=== PATIENT | male | born 1955 | race African-American/Black ===

== ENCOUNTER 2020-09-03 15:36 | Emergency (ER) | payer MEDICARE, MEDICAID ==
[~2020-09-03] VITALS: Ht 170.2 cm; Wt 81.6 kg
[2020-09-03 15:54] VITALS: BP 165/99
[2020-09-03] MEDS ORDERED: AMLODIPINE BESYL5 MG ORAL (15:56)
[2020-09-03] MEDS ORDERED: JANUMET 50-1,01 EACH ORAL (15:56)
[2020-09-03] MEDS ORDERED: HYDROCODON-ACE1 EA15 ORAL (15:56)
[2020-09-03] MEDS ORDERED: GLIPIZIDE5 MG ORAL (15:56)
[2020-09-03 16:40] LABS: BASOPHILS % (AUTO) 0.9 % (0.0-2.0); EOSINOPHILS % (AUTO) 2.1 % (0.0-3.0); HEMATOCRIT 46.8 % (42.0-52.0); HEMOGLOBIN 16.4 G/DL (14.2-18.0); LYMPHOCYTES % (AUTO) 25.5 % (20.0-45.0); MEAN CORPUSCULAR VOLUME 91 FL (80-99); NEUTROPHILS % (AUTO) 63.4 % (45.0-75.0); PLATELET COUNT 249 K/UL (150-450); RED BLOOD COUNT 5.16 M/UL (4.70-6.10); RED CELL DISTRIBUTION WIDTH 12.3 % (11.6-14.8); WHITE BLOOD COUNT 9.2 K/UL (4.8-10.8)
[2020-09-03 16:43] LABS: CALCIUM 9.1 MG/DL (8.5-10.1); CREATININE 2.4 MG/DL (0.55-1.30); POTASSIUM 4.5 MMOL/L (3.5-5.1)
[2020-09-03 16:48] LABS: ALBUMIN 3.5 G/DL (3.4-5.0); ALBUMIN/GLOBULIN RATIO 0.7 (1.0-2.7); BILIRUBIN,TOTAL 0.4 MG/DL (0.2-1.0)
--- NOTE | 2020-09-03 17:05 | Diagnostic Imaging Report ---
Indications: Right-sided head pain radiating down to patient's feet Technique: Spiral acquisitions obtained through the brain. Angled axial and coronal 5 x 5 mm slices were reconstructed. Total dose length product 1098 mGycm. CTDI vol(s) 53 mGy. Dose reduction achieved using automated exposure control Comparison: None. Findings: There is a large area of cystic encephalomalacia involving essentially entire left occipital lobe and extending into the posterior inferior parietal lobe. There is resultant ex vacuo dilatation of the atrium of the left lateral ventricle. There is a smaller area of encephalomalacia involving the parasagittal posterior right parietal lobe extending into the occipital lobe. There is an old white matter infarct in the right bethea radiata. There is generalized age-related enlargement of the ventricles and extra axial CSF spaces. There is extensive periventricular deep white matter low-attenuation, consistent with chronic microvascular ischemic change. There are old bilateral basal ganglia lacunar infarcts noted. The calvarium is intact. Old lacunar infarct is seen in the right cerebellar hemisphere. The mastoids are clear. Visualized sinuses are unremarkable. There is evidence of prior cataract surgery on the right orbit Impression: Extensive chronic and age-related changes, including multiple old infarcts, as detailed above. Negative for acute intracranial bleed or mass effect The CT scanner at [facility] is accredited by the [employer] and the scans are performed using protocols designed to limit radiation exposure to as low as reasonably achievable to attain images of sufficient resolution adequate for diagnostic evaluation.
--- NOTE | 2020-09-03 17:14 | Diagnostic Imaging Report ---
Indications: Low back pain Technique: Spiral acquisitions obtained through the lumbar spine. Multiplanar reconstructions were generated. No IV contrast utilized. Total dose length product 1312 mGycm. CTDIvol(s) 20 mGy. Dose reduction achieved using automated exposure control Comparison: none Findings: Bony alignment is normal. Vertebral body heights are preserved. There is severe degenerative disc narrowing L5-S1, mild degenerative disc narrowing at L4-5. The remaining disc spaces are preserved. No evidence of acute fracture or dislocation. There is bilateral sacroiliac joint degeneration. At L3-4, there is circumferential annular bulge. This results in borderline spinal canal stenosis. There is bilateral facet arthrosis at this level. At L4-5, there is posterior disc bulge/osteophyte complex, which results in borderline narrowing of the spinal canal, there is moderate bilateral neural foraminal stenosis due to facet hypertrophy as well as the bulging disc. At L5-S1, posterior osteophytes may impinge upon the right lateral recess. There is severe bilateral neural foraminal stenosis, borderline central canal stenosis. The included extraspinal soft tissues are unremarkable. Impression: No acute bony trauma Degenerative changes, as detailed on a level by level basis above The CT scanner at [facility] is accredited by the [employer] and the scans are performed using protocols designed to limit radiation exposure to as low as reasonably achievable to attain images of sufficient resolution adequate for diagnostic evaluation.
--- NOTE | 2020-09-03 17:24 | Diagnostic Imaging Report ---
Indication: Neck pain Technique: Spiral acquisitions obtained through the cervical spine. No IV contrast utilized. Multiplanar reconstructions were generated. Total dose length product 1312 mGycm. CTDIvol(s) 20 mGy. Dose reduction achieved using automated exposure control. Comparison: none Findings: There is reversal of the normal cervical lordosis. There is very slight anterior offset of C2 on C3, very slight posterior offset of C4 on C5 and of C5 on C6. This is probably related to degenerative change. Otherwise normal bony alignment. The vertebral body heights are preserved. No acute fractures. No dislocations. At C2-3, the disc space is preserved. There is severe bilateral facet arthrosis. There is severe narrowing of the left neural foramen and the right neural foramen is nearly completely obliterated. No significant disc bulge or protrusion or central canal stenosis. At C3-4, there is moderate to severe degenerative disc narrowing. There is severe bilateral neural foraminal stenosis. No significant disc bulge or protrusion or spinal stenosis. There is bilateral facet arthrosis at this level. At C4-5, there is moderate to severe degenerative disc narrowing. There is moderate to severe right, severe left neural foraminal stenosis. No significant disc bulge or protrusion or spinal stenosis. At C5-6, there is severe degenerative disc narrowing. There is severe bilateral neural foraminal stenosis. There is bilateral facet arthrosis. Short pedicles and posterior osteophytes result in mild spinal stenosis at this level. At C6-7, there is mild degenerative disc narrowing. There is mild right neural foraminal stenosis. At C7-T1, no significant disc bulge or protrusion, spinal stenosis, or neural foraminal narrowing. The included extra spinal soft tissues are unremarkable. Impression: No acute bony trauma Degenerative changes as detailed on a level by level basis above The CT scanner at [facility] is accredited by the [employer] and the scans are performed using protocols designed to limit radiation exposure to as low as reasonably achievable to attain images of sufficient resolution adequate for diagnostic evaluation.
--- NOTE | 2020-09-03 17:34 | Diagnostic Imaging Report ---
Indication: Back pain Technique: Spiral acquisitions obtained through the thoracic spine. No IV contrast utilized. Multiplanar reconstructions were generated. Total dose length product 1312 mGycm. CTDIvol(s) 20 mGy. Dose reduction achieved using automated exposure control Comparison: none Findings: There is mild thoracic scoliotic deformity, otherwise normal bony alignment.. Vertebral body heights are preserved. Disc spaces are preserved. No evidence of acute fracture. No dislocation. There are degenerative proliferative changes noted. There are degenerative changes of the lower cervical spine noted. There is moderate left neural foraminal stenosis at T2-3. There is severe neural foraminal stenosis on the right at T3-4. A central posterior osteophyte at T8-9 results in borderline narrowing of the spinal canal. At the remaining disc levels, no significant disc bulge or protrusion, spinal stenosis, or neural foraminal narrowing. Included extra spinal soft tissues are unremarkable. There is evidence of transverse narrowing of the trachea, etiology of which is uncertain. Impression: No acute bony trauma Degenerative changes, as described Slight saber-sheath appearance of the trachea, significance/etiology uncertain The CT scanner at [facility] is accredited by the [employer] and the scans are performed using protocols designed to limit radiation exposure to as low as reasonably achievable to attain images of sufficient resolution adequate for diagnostic evaluation.
[2020-09-03] MEDS ORDERED: Insulin Human Regular 100units/ml 3ml ONE (18:57)
[2020-09-03] MEDS ORDERED: Insulin Human Regular 100units/ml 3ml IV ONE (19:00)
--- NOTE | 2020-09-03 19:32 | Emergency Room Report ---
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 Denies any fall or injury however at times reports that" I do not recall if I fell.". Appears to be slightly confused, however neurovascularly intact. I spoke to patient's primary doctor, Dr. Lopez and was told that patient has been taking the medication as been living in [facility]. Patient has not had any seizure history. Appears to be ambulatory. Stable vital signs. Allergies: Coded Allergies: CODEINE (Verified Allergy, Unknown, 09/03/20) COVID-19 Screening Contact w/high risk pt: No Experienced COVID-19 symptoms?: No COVID-19 Testing performed PUMP INSTALLER: No Patient History Past Medical History: see triage record Past Surgical History: none Pertinent Family History: none Immunizations: UTD Reviewed Nursing Documentation: PMH: Agreed; PSxH: Agreed Nursing Documentation-PMH Hx Hypertension: Yes Hx Diabetes: Yes Hx Cerebrovascular Accident: Yes - in 2013, R sided weakness Review of Systems All Other Systems: negative except mentioned in HPI Physical Exam Vital Signs Date Time Temp Pulse Resp B/P (MAP) Pulse Ox O2 Delivery O2 Flow Rate FiO2 09/03/20 15:45 98.4 99 18 165/99 (121) 94 Room Air Sp02 EP Interpretation: reviewed, normal General Appearance: no apparent distress, alert, GCS 15, non-toxic Head: normocephalic, atraumatic Eyes: bilateral eye normal inspection, bilateral eye PERRL ENT: hearing grossly normal, normal pharynx, no angioedema, normal voice Neck: full range of motion, supple/symm/no masses Respiratory: chest non-tender, lungs clear, normal breath sounds, speaking full sentences Cardiovascular #1: regular rate, rhythm, no edema Cardiovascular #2: 2+ carotid (R), 2+ carotid (L), 2+ radial (R), 2+ radial (L), 2+ dorsalis pedis (R), 2+ dorsalis pedis (L) Gastrointestinal: normal bowel sounds, non tender, soft, no organomegaly, no peritonitis, no bruit, non-distended, no guarding, no rebound Rectal: deferred Genitourinary: no CVA tenderness Musculoskeletal: back normal, normal range of motion, no calf tenderness, pelvis stable, gait/station normal, non-tender Neurologic: alert, motor strength/tone normal, oriented, distal neuro normal, oriented x3, sensory intact, responsive, speech normal Psychiatric: judgement/insight normal, memory normal, mood/affect normal, no suicidal/homicidal ideation Skin: no rash Lymphatic: no adenopathy Medical Decision Making PA Attestation All diagnoses and treatment plans were reviewed and discussed with my supervising physician Dr. 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 Denies any fall or injury however at times reports that" I do not recall if I fell.". Appears to be slightly confused, however neurovascularly intact. I spoke to patient's primary doctor, Dr. Lopez and was told that patient has been taking the medication as been living in [facility]. Patient has not had any seizure history. Appears to be ambulatory. Stable vital signs. Ddx considered but are not limited to: CVA, TIA, pulmonary embolism leading to stroke, Vital signs: are WNL, pt. is afebrile H&PE are most consistent with: Weakness, hyperglycemia ORDERS: Head CT no contrast, CT C-spine no contrast, CT T and L-spine no contrast, stroke order set ER intervention: NS bolus, insulin At this time patient is stable to be discharged due to normal vital signs, blood work within normal limit controlled diabetes after administration of IV fluids and insulin. No signs of acute stroke noted on CT head. I consulted with patient's primary doctor, Dr. Lopez and he agrees that the patient can be sent back home. Advised patient return to the emergency room if worsening symptoms. Also patient should be compliant with taking diabetes medication, more advanced assessment and management of diabetes needed for patient due to elevated glucose upon arrival. EKG Diagnostic Results Rate: normal Rhythm: NSR ST Segments: no acute changes Other Impression No acute ST changes ASA given to the pt in ED: No Chest X-Ray Diagnostic Results Chest X-Ray Diagnostic Results : Indication: Other CT/MRI/US Diagnostic Results CT/MRI/US Diagnostic Results #1: Imaging Test Ordered: CT head no contrast Impression Findings: There is a large area of cystic encephalomalacia involving essentially entire left occipital lobe and extending into the posterior inferior parietal lobe. There is resultant ex vacuo dilatation of the atrium of the left lateral ventricle. There is a smaller area of encephalomalacia involving the parasagittal posterior right parietal lobe extending into the occipital lobe. There is an old white matter infarct in the right bethea radiata. There is generalized age-related enlarge ment of the ventricles and extra axial CSF spaces. There is extensive periventricular deep white matter low-attenuation, consistent with chronic microvascular ischemic change. There are old bilateral basal ganglia lacunar infarcts noted. The calvarium is intact. Old lacunar infarct is seen in the right cerebellar hemisphere. The mastoids are clear. Visualized sinuses are unremarkable. There is evidence of prior cataract surgery on the right orbit Impression: Extensive chronic and age-related changes, including multiple old infarcts, as detailed above. CT/MRI/US Diagnostic Results #2: Imaging Test Ordered: CT C spine no contrast Impression Findings: There is reversal of the normal cervical lordosis. There is very slight anterior offset of C2 on C3, very slight posterior offset of C4 on C5 and of C5 on C6. This is probably related to degenerative change. Otherwise normal bony alignment. The vertebral body heights are preserved. No acute fractures. No dislocations. At C2-3, the disc space is preserved. There is severe bilateral facet arthrosis. There is severe narrowing of the left neural foramen and the right neural foramen is nearly completely obliterated. No significant disc bulge or protrusion or centra l canal stenosis. At C3-4, there is moderate to severe degenerative disc narrowing. There is severe bilateral neural foraminal stenosis. No significant disc bulge or protrusion or spinal stenosis. There is bilateral facet arthrosis at this level. At C4-5, there is moderate to severe degenerative disc narrowing. There is moderate to severe right, severe left neural foraminal stenosis. No significant disc bulge or protrusion or spinal stenosis. At C5-6, there is severe degenerative disc narrowing. There is severe bilateral neural foraminal stenosis. There is bilateral facet arthrosis. Short pedicles and posterior osteophytes result in mild spinal stenosis at this level. At C6-7, there is mild degenerative disc narrowing. There is mild right neural foraminal stenosis. At C7-T1, no significant disc bulge or protrusion, spinal stenosis, or neural foraminal narrowing. The included extra spinal soft tissues are unremarkable. Impression: No acute bony trauma Degenerative changes as detailed on a level by level basis above CT/MRI/US Diagnostic Results #3: Imaging Test Ordered: CT T spine no contrast Impression Findings: There is mild thoracic scoliotic deformity, otherwise normal bony alignment.. Vertebral body heights are preserved. Disc spaces are preserved. No evidence of acute fracture. No dislocation. There are degenerative proliferative changes noted. There are degenerative changes of the lower cervical spine noted. There is moderate left neural foraminal stenosis at T2-3. There is severe neural foraminal stenosis on the right at T3-4. A central posterior osteophyte at T8-9 results in borderline narrowing of the spinal canal. At the remaining disc levels, no significant disc bulge or protrusion, spinal stenosis, or neural foraminal narrowing. Included extra spinal soft tissues are unremarkable. There is evidence of tra nsverse narrowing of the trachea, etiology of which is uncertain. Impression: No acute bony trauma Degenerative changes, as described Slight saber-sheath appearance of the trachea, significance/etiology uncertain CT/MRI/US Diagnostic Results #4: Imaging Test Ordered: CT L spine no contrast Impression Findings: Bony alignment is normal. Vertebral body heights are preserved. There is severe degenerative disc narrowing L5-S1, mild degenerative disc narrowing at L4-5. The remaining disc spaces are preserved. No evidence of acute fracture or dislocation. There is bilateral sacroiliac joint degeneration. At L3-4, there is circumferential annular bulge. This results in borderline spinal canal stenosis. There is bilateral facet arthrosis at this level. At L4-5, there is posterior disc bulge/osteophyte complex, which results in borderline narrowing of the spinal canal, there is moderate bilateral neural foraminal stenosis due to facet hypertrophy as well as the bulging disc. At L5-S1, posterior osteophytes may impinge upon the right lateral recess. There is severe bilateral neural foraminal stenosis, borderline central canal stenosis. The included extraspinal soft tissues are unremarkable. Impression: No acute bony trauma Degenerative changes, as detailed on a level by level basis above Last Vital Signs Date Time Temp Pulse Resp B/P (MAP) Pulse Ox O2 Delivery O2 Flow Rate FiO2 09/03/20 15:54 18 165/99 94 Room Air 09/03/20 15:45 98.4 99 Disposition: HOME, SELF-CARE Condition: Stable Referrals: Wade Lopez MD (PCP) Patient Instructions: Hyperglycemia, [id number] Linnea Mcneil Sep 03, 2020 19:32
[2020-09-03 20:10] VITALS: BP 156/95
== END 2020-09-03 20:10 | disposition home or self-care (01) ==
LOC: EMR 16:15
DX: E11.65 Type 2 diabetes mellitus with hyperglycemia (principal); Z79.84 Long term (current) use of oral hypoglycemic drugs; I10 Essential (primary) hypertension; Z86.73 Personal history of transient ischemic attack (TIA), and cerebral infarction without residual deficits
CPT/HCPCS: 70450; 72125; 72128; 72131; 80053; 82009; 82803; 82962; 84484; 85025; 85610; 85730; 93005; 96361; 96374; 99284; J1815

== ENCOUNTER 2020-11-19 10:40 | Emergency (ER) | payer MEDICARE, MEDICAID ==
[~2020-11-19] VITALS: Ht 177.8 cm; Wt 83.9 kg
[~2020-11-19 10:40] MED LIST: AMLODIPINE BESYL5 MG ORAL; GLIPIZIDE5 MG ORAL; HYDROCODON-ACE1 EA15 ORAL; JANUMET 50-1,01 EACH ORAL
[2020-11-19 10:47] VITALS: BP 153/84
--- NOTE | 2020-11-19 11:00 | NUR ---
Patient reports to the ER for pain in his right side x 2 weeks. Sent to the ER by Dr John. He has been on pain medication for said problem but ran out of his pills.
[2020-11-19] MEDS ORDERED: HYDROCODON-ACE1 EA15 ORAL (11:30)
--- NOTE | 2020-11-19 11:44 | Emergency Room Report ---
History of Present Illness General Chief Complaint: Pain Present Illness HPI Disclaimer: Please note that this report is being documented using [employer] technology. This can lead to erroneous entry secondary to incorrect interpretation by the dictating instrument. HPI: 65-year-old male history of hypertension, diabetes, stroke with baseline right-sided weakness and chronic pain in his right side presents with right- sided pain. He states it has been worse the past 2 weeks. He states he ran out of his pain medication 2 weeks ago. Currently takes [place]. He denies any fevers cough shortness of breath chest pain nausea vomiting diarrhea or abdominal pain. Denies any back pain. Pain is mainly from the right shoulder and radiates down the ri arm worse with movement and walking. PMH: Hypertension, diabetes, stroke PSH: Reviewed Social Hx: Denies smoking, drinking, drug use Allergies: Coded Allergies: CODEINE (Verified Allergy, Unknown, 09/03/20) COVID-19 Screening Contact w/high risk pt: No Experienced COVID-19 symptoms?: No COVID-19 Testing performed DROP FORGER HELPER: No COVID-19 Screening: Negative COVID-19 Patient History Reviewed Nursing Documentation: PMH: Agreed; PSxH: Agreed Nursing Documentation-PMH Hx Cardiac Problems: No Hx Hypertension: Yes Hx Pacemaker: No Hx Asthma: No Hx COPD: No Hx Diabetes: Yes Hx Cancer: No Hx Gastrointestinal Problems: No Hx Dialysis: No History Of Psychiatric Problem: No Hx Neurological Problems: No Hx Cerebrovascular Accident: Yes Hx Seizures: No Review of Systems All Other Systems: negative except mentioned in HPI Physical Exam Vital Signs Date Time Temp Pulse Resp B/P (MAP) Pulse Ox O2 Delivery O2 Flow Rate FiO2 11/19/20 10:47 98.2 104 18 153/84 (107) 96 Room Air Sp02 EP Interpretation: reviewed, normal General Appearance: well appearing, no apparent distress Head: normocephalic, atraumatic Eyes: bilateral eye PERRL, bilateral eye EOMI ENT: hearing grossly normal, moist mucus membranes Neck: full range of motion, supple Respiratory: lungs clear, normal breath sounds, no rhonchi, no respiratory distress, no retraction, no wheezing Cardiovascular #1: normal peripheral pulses, regular rate, rhythm, no murmur Gastrointestinal: non tender, soft, non-distended, no guarding Musculoskeletal: other - Right shoulder mildly tender to palpation with decreased range of motion above 90 degrees secondary to pain. Baseline right- sided weakness Neurologic: alert, oriented x3, other - Patient has mild baseline right-sided weakness but ambulates with a cane, otherwise no focal neurologic deficits appreciated Skin: normal color, warm/dry Medical Decision Making Diagnostic Impression: Primary Impression: Right shoulder pain ER Course Differential included but not limited to arthritis, neuropathy, arthralgias, rotator cuff injury, less likely ACS PE or other serious etiology. Patient's pain was more chronic in nature. Got worse after running out of his analgesics. I did order x-ray of the right shoulder which showed no acute fracture or dislocation. I spoke with patient's primary care doctor, Dr. Lopez who will refer patient to orthopedics. Patient we discharged with pain control and close follow-up with his primary physician. Other X-Ray Diagnostic Results Other X-Ray Diagnostic Results : X-Ray ordered: Right shoulder # of Views/Limited Vs Complete: 4 View Indication: Pain Interpretation: no dislocation, no fractures Impression: No acute disease Electronically Signed by: Glenn Fung MD Last Vital Signs Date Time Temp Pulse Resp B/P (MAP) Pulse Ox O2 Delivery O2 Flow Rate FiO2 11/19/20 11:02 Room Air 11/19/20 10:47 98.2 104 18 153/84 (107) 96 Disposition: HOME, SELF-CARE Condition: Stable Scripts Hydrocodone/Acetaminophen 5-325* (HYDROCODONE/ACETAMINOPHEN 5-325*) 1 Each Tablet 1 TAB ORAL Q6HR PRN for For Pain, #12 TAB 0 Refills Prov: Glenn Fung M.D. 11/19/20 Patient Instructions: Shoulder Pain, [id number] Additional Instructions: Patient is instructed to follow-up with her primary care doctor, primary care clinic or [facility] in 1 to 2 days. Patient instructed to return for any worsening symptoms or concerns. Glenn Fung M.D. Nov 19, 2020 11:44
--- NOTE | 2020-11-19 18:08 | Diagnostic Imaging Report ---
Indication: Right shoulder pain Technique: 3 views of the right shoulder Comparison: none Findings: No acute fracture. No dislocation. Joint spaces are preserved Impression: Negative
== END 2020-11-19 11:33 | disposition home or self-care (01) ==
LOC: EMR 11:11
DX: M25.511 Pain in right shoulder (principal); I10 Essential (primary) hypertension; E11.9 Type 2 diabetes mellitus without complications; Z86.73 Personal history of transient ischemic attack (TIA), and cerebral infarction without residual deficits; Z79.84 Long term (current) use of oral hypoglycemic drugs; Z88.5 Allergy status to narcotic agent
CPT/HCPCS: 99283